=== PATIENT | male | born 1975 | race African-American/Black ===

== ENCOUNTER 2020-12-07 20:38 | Emergency (ER) | payer SELFPAY ==
[2020-12-07] MEDS ORDERED: Sodium Chloride 0.9% 2.5 ML Syringe FLUSH PRN (20:54)
[2020-12-07] MEDS ORDERED: Sodium Chloride 0.9% 10 ML Syringe FLUSH PRN (20:54)
--- NOTE | 2020-12-07 20:54 | EDM.PDOC ---
ED HPI GENERAL MEDICAL PROBLEM - General Stated Complaint: RESP. Time Seen by Provider: 12/07/20 20:40 - History of Present Illness INITIAL COMMENTS - FREE TEXT/NARRATIVE: History of present illness: [] The patient is short of breath, coughing, and has chest pressure for 3 days. He ran out of his albuterol 2 days ago. He works with some dust that causes him to cough while he is at work. His doctor is given him an albuterol nebulizer and medication. He ran out 2 days ago. The patient works to breathing when he gets home. He coughs while he is at work. He has chest pressure with exertion also. The patient is a smoker. The patient had a 1 grandparent with coronary vessel disease and the rest of his immediate family is negative for heart disease. The patient takes blood pressure medicine but is not treated for cholesterol or diabetes. Review of systems: As per history of present illness and below otherwise all systems reviewed and negative. Past medical history: As per history of present illness and as reviewed below otherwise no ncontributory. Surgical history: As per history of present illness and as reviewed below otherwise noncontributory. Social history: No reported history of drug or alcohol abuse. Family history: As per history of present illness and as reviewed below otherwise noncontributory. Physical exam: Constitutional - well developed, well-nourished and in no acute distress HEENT - normocephalic, no evidence of trauma - external nose and mouth normal - no mass in neck and no JVD - mucosae moist EYES - full EOM, PERRL, no icterus - no evidence of inflammation, injection, or drainage Respiratory - no respiratory distress, equal bilateral expansion, lungs with prolonged expiratory phase of respiration and markedly diminished breath sounds throughout. Cardiovascular - Regular Rhythm with S1 and S2 appreciated and no murmur, gallop or rub. GI - abdomen soft without distension or organomegaly - normal bowel sounds - no guard or rebound Musculoskeletal no gross deformity of long bones or joints - no tenderness, swelling or edema Neurologic - Alert and oriented times four - CN II-XII grossly intact - motor sensory and coordination symmetrically normal Psychiatric - appropriate mood and affect with normal thought content Hematologic - No petechiae or purpura - mucosa appropriate color and sclera not pale - normal nail bed color and refill Integument - no rash or evidence of trauma - normal turgor Diagnostics: [] Therapeutics: [] Impression: [] Plan: [] Definitive disposition and diagnosis as appropriate pending reevaluation and review of above. - Related Data Allergies Allergy/AdvReac Type Severity Reaction Status Date / Time No Known Allergies Allergy Verified 12/07/20 20:51 Home Meds: Home Meds Albuterol [Proventil] 2.5 mg INH QIDRT PRN #25 ampule 12/07/20 [Rx] lisinopriL [Lisinopril] 20 mg PO DAILY 12/07/20 [History] predniSONE [Prednisone] 60 mg PO DAILY #21 tablet 12/07/20 [Rx] ED ROS GENERAL - Review of Systems Review Of Systems: Comprehensive ROS is negative, except as noted in HPI. ED EXAM, GENERAL - Physical Exam Exam: See Below Free Text/Narrative:: My physical exam is in the HPI #1 Interpretation EKG Interpretation Comments: EKG done at 2044 hrs. Sinus rhythm with a heart rate of 97. ME interval 140 and QT duration 445. QRS axis 57. Nonspecific T wave abnormality. QRS is normal. The patient has no prior for comparison. Impression no obvious acute injury. Course - Vital Signs Text/Narrative:: 2136 hrs. patient improved quite a bit. Good air exchange. Not short of breath now. Patient understands he has a nodule in his x-ray and will get a repeat in 2 to 3 months locally. Patient also will get a nebulizer refill and prednisone starting tomorrow and get an inhaler to use tonight if he has a problem. Last Recorded V/S: Last Vital Signs Temp 36.3 C 12/07/20 20:48 Pulse 102 H 12/07/20 20:48 Resp 22 H 12/07/20 20:48 BP 154/80 H 12/07/20 20:48 Pulse Ox 94 L 12/07/20 20:48 - Orders/Labs/Meds Orders: Active Orders 24 hr Category Date Time Status EKG Documentation Completion [RC] AM Care 12/07/20 20:54 Active RT Aerosol Therapy [RC] ASDIRECTED Care 12/07/20 20:57 Active RT Post Treatment Assessment [RC] Click to Edit Care 12/07/20 21:33 Ordered RT Pre-Treatment Assessment [RC] Click to Edit Care 12/07/20 21:33 Ordered Sodium Chloride 0.9% [Saline Flush] Med 12/07/20 20:54 Active 10 ml FLUSH ASDIRECTED PRN Sodium Chloride 0.9% [Saline Flush] Med 12/07/20 20:54 Active 2.5 ml FLUSH ASDIRECTED PRN Saline Lock Insert [OM.PC] Stat Oth 12/07/20 20:54 Ordered Medication Orders Sodium Chloride (Sodium Chloride 0.9% 10 Ml Syringe) 10 ml FLUSH ASDIRECTED PRN PRN Reason: Keep Vein Open Last Admin: 12/07/20 21:06 Dose: 10 ml Documented by: STAS Sodium Chloride (Sodium Chloride 0.9% 2.5 Ml Syringe) 2.5 ml FLUSH ASDIRECTED PRN PRN Reason: Keep Vein Open Last Admin: 12/07/20 21:06 Dose: 2.5 ml Documented by: STAS Labs: Laboratory Tests 12/07/20 12/07/20 Range/Units 20:52 20:52 WBC 9.27 (4.0-11.0) K/uL RBC 4.96 (4.50-5.90) M/uL Hgb 15.4 (13.0-17.0) g/dL Hct 45.4 (38.0-50.0) % MCV 91.5 (80.0-98.0) fL MCH 31.0 (27.0-32.0) pg MCHC 33.9 (31.0-37.0) g/dL RDW Std Deviation 46.9 (28.0-62.0) fl RDW Coeff of Cindy 14 (11.0-15.0) % Plt Count 301 (150-400) K/uL MPV 10.40 (7.40-12.00) fL Neut % (Auto) 55.0 (48.0-80.0) % Lymph % (Auto) 33.1 (16.0-40.0) % [place] % (Auto) 9.7 (0.0-15.0) % Eos % (Auto) 2.0 (0.0-7.0) % Baso % (Auto) 0.2 (0.0-1.5) % Neut # (Auto) 5.1 (1.4-5.7) K/uL Lymph # (Auto) 3.1 H (0.6-2.4) K/uL [place] # (Auto) 0.9 H (0.0-0.8) K/uL Eos # (Auto) 0.2 (0.0-0.7) K/uL Baso # (Auto) 0.0 (0.0-0.1) K/uL Nucleated RBC % 0.0 /100WBC Nucleated RBCs # 0 K/uL Sodium 140 (136-148) mmol/L Potassium 4.5 (3.5-5.1) mmol/L Chloride 100 (98-107) mmol/L Carbon Dioxide 30.3 (21.0-32.0) mmol/L BUN 24 H (7.0-18.0) mg/dL Creatinine 1.4 H (0.8-1.3) mg/dL Est Cr Clr Drug Dosing 71.60 mL/min Estimated GFR (MDRD) > 60.0 ml/min Glucose 112 H (74-106) mg/dL Calcium 8.7 (8.5-10.1) mg/dL Total Bilirubin 0.3 (0.2-1.0) mg/dL AST 77 H (15-37) IU/L ALT 93 H (14-63) IU/L Alkaline Phosphatase 117 H (46-116) U/L Troponin I < 0.050 (0.000-0.056) ng/mL Total Protein 8.0 (6.4-8.2) g/dL Albumin 4.0 (3.4-5.0) g/dL Globulin 4.0 (2.6-4.0) g/dL Albumin/Globulin Ratio 1.0 (0.9-1.6) Meds: Medications Generic Name Dose Route Start Last Admin Trade Name Freq PRN Reason Stop Dose Admin Sodium Chloride 10 ml 12/07/20 20:54 12/07/20 21:06 Sodium Chloride 0.9% 10 Ml Syringe FLUSH 10 ml ASDIRECTED PRN Administration Keep Vein Open Sodium Chloride 2.5 ml 12/07/20 20:54 12/07/20 21:06 Sodium Chloride 0.9% 2.5 Ml Syringe FLUSH 2.5 ml ASDIRECTED PRN Administration Keep Vein Open Discontinued Medications Generic Name Dose Route Start Last Admin Trade Name Freq PRN Reason Stop Dose Admin Albuterol 8 gm 12/07/20 21:32 Albuterol 6.7 Gm Inhaler INH 12/07/20 21:33 ONETIME ONE Albuterol/Ipratropium 3 ml 12/07/20 20:57 12/07/20 21:05 Albuterol/Ipratropium 3.0-0.5 Mg/3 Ml Neb Soln NEB 12/07/20 20:58 3 ml ONETIME ONE Administration Prednisone 60 mg 12/07/20 20:57 12/07/20 21:05 Prednisone 20 Mg Tab PO 12/07/20 20:58 60 mg ONETIME ONE Administration Departure - Departure Time of Disposition: 21:37 Disposition: Home, Self-Care 01 Condition: Good Clinical Impression: Acute bronchiolitis - Discharge Information Prescriptions: predniSONE [Prednisone] 60 mg PO DAILY #21 tablet Albuterol [Proventil] 2.5 mg INH QIDRT PRN #25 ampule PRN Reason: Dyspnea Referrals: PCP,None [Primary Care Provider] - Additional Instructions: You have a nodule on your x-ray and this needs to be followed up with a local physician or your physician in your hometown. Repeat x-ray as it least the minimum that is required. [facility] - Primary Care [address] [place] [address] [place] [address] The following information is given to patients seen in the emergency department who are being discharged to home. This information is to outline your options for follow-up care. We provide all patients seen in our emergency department with a follow-up referral. The need for follow-up, as well as the timing and circumstances, are variable depending upon the specifics of your emergency department visit. If you don't have a primary care physician on staff, we will provide you with a referral. We always advise you to contact your personal physician following an emergency department visit to inform them of the circumstance of the visit and for follow-up with them and/or the need for any referrals to a consulting specialist. The emergency department will also refer you to a specialist when appropriate. This referral assures that you have the opportunity for follow-up care with a specialist. All of these measure are taken in an effort to provide you with optimal care, which includes your follow-up. Under all circumstances we always encourage you to contact your private physician who remains a resource for coordinating your care. When calling for follow-up care, please make the office aware that this follow-up is from your recent emergency room visit. If for any reason you are refused follow-up, please contact the [facility] Emergency Department at and asked to speak to the emergency department charge nurse. Sepsis Event Note (ED) - Focused Exam Vital Signs: Vital Signs Temp Pulse Resp BP Pulse Ox 12/07/20 20:48 36.3 C 102 H 22 H 154/80 H 94 L - My Orders Last 24 Hours: My Active Orders 12/07/20 20:54 EKG Documentation Completion [RC] AM Sodium Chloride 0.9% [Saline Flush] 10 ml FLUSH ASDIRECTED PRN Sodium Chloride 0.9% [Saline Flush] 2.5 ml FLUSH ASDIRECTED PRN Saline Lock Insert [OM.PC] Stat 12/07/20 20:57 RT Aerosol Therapy [RC] ASDIRECTED 12/07/20 21:33 RT Post Treatment Assessment [RC] Click to Edit RT Pre-Treatment Assessment [RC] Click to Edit - Assessment/Plan Last 24 Hours: My Active Orders 12/07/20 20:54 EKG Documentation Completion [RC] AM Sodium Chloride 0.9% [Saline Flush] 10 ml FLUSH ASDIRECTED PRN Sodium Chloride 0.9% [Saline Flush] 2.5 ml FLUSH ASDIRECTED PRN Saline Lock Insert [OM.PC] Stat 12/07/20 20:57 RT Aerosol Therapy [RC] ASDIRECTED 12/07/20 21:33 RT Post Treatment Assessment [RC] Click to Edit RT Pre-Treatment Assessment [RC] Click to Edit
[2020-12-07] MEDS ORDERED: Albuterol/Ipratropium 3.0-0.5 MG/3 ML Neb Soln NEB ONE (20:57)
[2020-12-07] MEDS ORDERED: predniSONE 20 MG Tab PO ONE (20:57)
[2020-12-07 21:20] LABS: BLOOD UREA NITROGEN,BUN 24 mg/dL (7.0-18.0); CARBON DIOXIDE,CO2 30.3 mmol/L (21.0-32.0); CHLORIDE,CL 100 mmol/L (98-107); GLUCOSE RANDOM 112 mg/dL (74-106); POTASSIUM,K 4.5 mmol/L (3.5-5.1); SODIUM,NA 140 mmol/L (136-148)
--- NOTE | 2020-12-07 21:24 | CR ---
INDICATION: Chest pain and dyspnea TECHNIQUE: Chest radiograph 1 view COMPARISON: None FINDINGS: Moderate degradation of image quality noted due to body habitus. Mediastinum: The mediastinum is normal in appearance. The heart silhouette is normal in size and morphology. Lung: There is a 2 cm nodular density in the right infrahilar region noted. No sign of pleural effusion seen. No pneumothorax is identified. Bone and Soft tissue: Unremarkable for age. IMPRESSION: 1. There is a 2 cm nodular density in the right infrahilar region noted. Comparison with any prior outside imaging is recommended. If these cannot be obtained, evaluation with chest CT is recommended to exclude hilar adenopathy. Dictated by Monty Blake MD @ 12/07/2020 9:21:42 PM Dictated by: Monty Blake MD @ 12/07/2020 21:23:44 (Electronically Signed)
[2020-12-07] MEDS ORDERED: Albuterol 6.7 GM Inhaler INH ONE (21:32)
[2020-12-07] MEDS ORDERED: Albuterol 8 GM Inhaler INH ONE (22:11)
== END 2020-12-07 22:18 | disposition home or self-care (01) ==
LOC: MW.ED 20:38
DX: J21.9 Acute bronchiolitis, unspecified (principal)
CPT/HCPCS: 36415; 71045; 80053; 84484; 85025; 93005; 99285; A9270; J7620-GY

== ENCOUNTER 2020-12-14 11:23 | Emergency (ER) | payer OTHER ==
[2020-12-14] MEDS ORDERED: Diphtheria,Pertussis(Acell),Tetanus Vaccine 0.5 ML Syringe IM ONE (13:13)
[2020-12-14] MEDS ORDERED: Lidocaine 1% PF 2 ML SDV INJECT ONE (13:13)
[2020-12-14] MEDS ORDERED: Bacitracin Oint 1 GM U/D Packet TOP ONE (14:08)
--- NOTE | 2020-12-14 14:09 | EDM.PDOC ---
ED HPI GENERAL MEDICAL PROBLEM - General Chief Complaint: Laceration Stated Complaint: HIT IN HEAD W REBAR Time Seen by Provider: 12/14/20 13:08 - History of Present Illness INITIAL COMMENTS - FREE TEXT/NARRATIVE: CHIEF COMPLAINT(S): Head injury HISTORY OF PRESENT ILLNESS: This is a 45-year-old man without any significant past medical history who comes to the emergency department with a chief complaint of head injury. The patient states that approximately 1 hour prior to arrival he was working with rebar when the end of the rebar hit the left side of his head. He denies any loss of consciousness, blurry vision, loss of vision, numbness, tingling, weakness. He denies any nausea or vomiting. He describes a right frontal headache which he rates as 7 out of 10 without any other associated symptoms. He has not yet tried any pain medications for relief. He describes the pain as throbbing. The exacerbating factor was getting hit with a rebar. He denies any chest pain, shortness of breath, abdominal pain, nausea or vomiting. He states that he does not know if his tetanus is up-to-date. He states that there is a cut over his left eyebrow with minimal bleeding. REVIEW OF SYSTEMS: Constitutional: Denies fever, chills. Eyes: Denies eye pain Ears, Nose, Mouth, & Throat: Denies earache Cardiovascular: Denies chest pain Respiratory: Denies shortness of breath Gastrointestinal: Denies Nausea, vomiting, diarrhea, hematochezia. Genitourinary: Denies hematuria Skin: Positive for left eyebrow laceration MSK: Denies joint pain Neurological: Positive for headache. Denies blurred vision, loss of vision, double vision, numbness, tingling, weakness Psychiatric: Denies depression PAST MEDICAL HISTORY: As per history of present illness and as reviewed below otherwise noncontributory. SURGICAL HISTORY: As per history of present illness and as reviewed below otherwise noncontributory. SOCIAL HISTORY: As per history of present illness and as reviewed below otherwise noncontributory. FAMILY HISTORY: As per history of present illness and as reviewed below otherwise noncontributory. EXAMINATION OF ORGAN SYSTEMS/BODY AREAS: Constitutional: Blood pressure is 154/88, heart rate 108, respiratory 16 with an oxygen saturation 98% on room air. Temperature 36.1 General: Overall well-appearing man who is in no acute distress Psychiatric: Appropriate mood and affect. Eyes: No scleral icterus or conjunctival erythema pupils were 3 mm and reactive bilaterally. Extraocular movements intact. No nystagmus noted. ENMT: Moist mucous membranes. No pharyngeal erythema no blood in the oropharynx. No missing or chipped teeth. Cardiovascular: Regular, rate, and rhythm. No gallops, murmurs, or rubs. Bilateral upper extremity pulses symmetric and intact. No peripheral edema. No JVD. Respiratory: Lungs clear to auscultation bilaterally. No wheezes, rales, or rhonchi. Gastrointestinal: Soft, non-tender, non-distended. Normoactive bowel sounds Genitourinary: No suprapubic tenderness Musculoskeletal: Normal range of motion. Skin: There is a 1 cm superficial laceration to the lateral aspect of the left eyebrow. No active bleeding. Neurological: Alert, GCS 15 strength and sensation grossly intact in upper and lower extremities bilaterally. Gait is normal. MEDICAL DECISION MAKING AND COURSE IN THE ED WITH INTERPRETATION/REVIEW OF DIAGNOSTIC STUDIES: This is a 45-year-old man without any significant past medical history who comes to the emergency department with left eyebrow laceration after getting hit with rebar with a mild headache without any loss of consciousness. At this time I do not believe the patient requires any imaging or labs. Will update the patient's tetanus shot and repair the laceration. Laceration Repair Note Repair of the 1 cm left eyebrow wound was done by myself. Wound was irrigated well with saline. Local anesthesia was offered to the patient however he refused. No foreign bodies were noted. The wound was repaired with 2 6-0 directed nylon sutures. Wound edges approximated well. Bacitracin ointment and a sterile dressing were applied. After laceration repair I did discuss with patient he need to follow-up for removal of the stitches in 5 to 7 days. He is to return for any purulent drainage or redness. He was given strict return precautions for close head injury. He was amenable discharge at this time and had no further questions DISPOSITION: The patient was discharged home in stable condition. The patient will follow up with primary care physician or emergency department for removal of stitches CONDITION: Fair PROCEDURES: Laceration repair FINAL IMPRESSION(S)/DIAGNOSES: 1. Acute left eyebrow laceration status post suture repair 2. Acute headache likely secondary to blunt trauma Bhargav Pineda M.D. laceration left eyebrow Pain Score (Numeric/FACES): 7 - Related Data Allergies Allergy/AdvReac Type Severity Reaction Status Date / Time No Known Allergies Allergy Verified 12/14/20 12:34 Home Meds: Home Meds Albuterol [Proventil] 2.5 mg INH QIDRT PRN #25 ampule 12/07/20 [Rx] lisinopriL [Lisinopril] 20 mg PO DAILY 12/07/20 [History] Albuterol Sulfate [Albuterol Sulfate HFA] 1 - 2 puff INH QID PRN #1 inhaler 12/14/20 [Rx] Past Medical History Cardiovascular History: Reports: Hypertension Respiratory History: Reports: Asthma, Other (See Below) Other Respiratory History: on albuterol inh prn for sob - Infectious Disease History Infectious Disease History: Reports: Chicken Pox, Measles - Past Surgical History Cardiovascular Surgical History: Reports: None Respiratory Surgical History: Reports: None Social & Family History - Family History Family Medical History: No Pertinent Family History - Tobacco Use Tobacco Use Status *Q: Current Every Day Tobacco User Years of Tobacco use: 13 Packs/Tins Daily: 1.5 - Caffeine Use Caffeine Use: Reports: Coffee - Recreational Drug Use Recreational Drug Use: No ED ROS GENERAL - Review of Systems Review Of Systems: See Below ED EXAM, SKIN/RASH Exam: See Below Course - Vital Signs Last Recorded V/S: Last Vital Signs Temp 36.8 C 12/14/20 14:25 Pulse 88 12/14/20 14:25 Resp 20 12/14/20 14:25 BP 128/84 12/14/20 14:25 Pulse Ox 98 12/14/20 14:25 - Orders/Labs/Meds Meds: Medications Discontinued Medications Generic Name Dose Route Start Last Admin Trade Name Freq PRN Reason Stop Dose Admin Bacitracin 1 dose 12/14/20 14:08 Bacitracin Oint 1 Gm U/D Packet TOP 12/14/20 14:09 ONETIME ONE Diphtheria/Tetanus/Acell Pertussis 0.5 ml 12/14/20 13:13 12/14/20 13:39 Diphtheria,Pertussis(Acell),Tetanus Vaccine 0.5 Ml Syringe IM 12/14/20 13:14 0.5 ml .ONCE ONE Administration Lidocaine HCl 2 ml 12/14/20 13:13 12/14/20 13:38 Lidocaine 1% Pf 2 Ml Sdv INJECT 12/14/20 13:14 2 ml ONETIME ONE Administration Departure - Departure Time of Disposition: 14:09 Disposition: Home, Self-Care 01 Condition: Fair Clinical Impression: Eyebrow laceration - Discharge Information *PRESCRIPTION DRUG MONITORING PROGRAM REVIEWED*: No *COPY OF PRESCRIPTION DRUG MONITORING REPORT IN PATIENT RAQUEL: No Prescriptions: Albuterol Sulfate [Albuterol Sulfate HFA] 1 - 2 puff INH QID PRN #1 inhaler PRN Reason: Dyspnea Instructions: Laceration Care, Adult, [id number], Sutures, [place], or Adhesive Wound Closure, [id number] Referrals: PCP,None [Primary Care Provider] - Forms: ED Department Discharge Additional Instructions: You were evaluated today on an emergent basis. At this time we did repair your cut to your left eyebrow with 2 stitches. These need to be removed in 5 to 7 days. If you have any pus drainage or redness please return to the emergency department. In addition you did hit your head. If you have any vomiting that you cannot control, weakness in 1 extremity or the other or you just do not feel right you are welcome to return to the emergency department. Otherwise please follow-up with your primary care physician. I did send you a refill for your albuterol. [facility] - Primary Care [address] [place] [address] [place] [address] The patient is informed of any results of their evaluation and diagnostic workup and all questions are answered. They are given discharge instructions and return precautions. The patient is stable for discharge. The patient states they understand and agree with the plan and that they will return if their symptoms get worse or if they have any new concerns. The following information is given to patients seen in the emergency department who are being discharged to home. This information is to outline your options for follow-up care. We provide all patients seen in our emergency department with a follow-up referral. The need for follow-up, as well as the timing and circumstances, are variable depending upon the specifics of your emergency department visit. If you don't have a primary care physician on staff, we will provide you with a referral. We always advise you to contact your personal physician following an emergency department visit to inform them of the circumstance of the visit and for follow-up with them and/or the need for any referrals to a consulting specialist. The emergency department will also refer you to a specialist when appropriate. This referral assures that you have the opportunity for follow-up care with a specialist. All of these measure are taken in an effort to provide you with optimal care, which includes your follow-up. Under all circumstances we always encourage you to contact your private physician who remains a resource for coordinating your care. When calling for follow-up care, please make the office aware that this follow-up is from your recent emergency room visit. If for any reason you are refused follow-up, please contact the [facility] Emergency Department at and asked to speak to the emergency department charge nurse. Sepsis Event Note (ED) - Evaluation Sepsis Screening Result: No Definite Risk
== END 2020-12-14 14:24 | disposition home or self-care (01) ==
LOC: MW.ED 11:23
DX: S01.112A Laceration without foreign body of left eyelid and periocular area, initial encounter (principal); J45.909 Unspecified asthma, uncomplicated; I10 Essential (primary) hypertension; Z79.899 Other long term (current) drug therapy; Z72.0 Tobacco use; Z23 Encounter for immunization; W22.8XXA Striking against or struck by other objects, initial encounter
CPT/HCPCS: 12011; 90471; 90715; 99283; 99283-25

== ENCOUNTER 2020-12-29 08:21 | Emergency (ER) | payer OTHER | END 2020-12-29 08:35 | disposition left against medical advice (07) | LOC: MW.ED 08:21 | DX: Z53.21 Procedure and treatment not carried out due to patient leaving prior to being seen by health care provider (principal) ==